=== PATIENT | female | born 1930 | race Caucasian/White ===

== ENCOUNTER → 2017-01-19 | Outpatient (CLI) | payer MEDICARE ==
[~2017-01-19] MED LIST: ASPI-621 PO; HYDR25TA6 PO; IBUP-1222 PO; METO50TA4 PO; PRAV10TA2 PO
[2017-01-19 14:08] LABS: BLOOD UREA NITROGEN 25 mg/dL (7-18)
[2017-01-19 14:11] LABS: ASPARTATE AMINO TRANSFERASE 13 U/L (15-37)
== END | disposition home or self-care (01) ==
LOC: LAB 13:42
PROVIDERS: ATTEND Nurse Practitioner Family
DX: E78.00 Pure hypercholesterolemia, unspecified (principal); E83.41 Hypermagnesemia
CPT/HCPCS: 36415; 80053; 83735

== ENCOUNTER → 2017-03-19 | Outpatient (CLI) | payer MEDICARE | END | disposition home or self-care (01) | LOC: MERGE 03-06 13:00 → CFH 13:14 | PROVIDERS: ATTEND Specialist | DX: K44.9 Diaphragmatic hernia without obstruction or gangrene (principal); K22.4 Dyskinesia of esophagus | CPT/HCPCS: 74220 ==

== ENCOUNTER → 2017-03-25 | Outpatient (CLI) | payer MEDICARE | END | disposition home or self-care (01) | LOC: CFH 13:08 | PROVIDERS: ATTEND Specialist | DX: K76.9 Liver disease, unspecified (principal) | CPT/HCPCS: 82565 ==

== ENCOUNTER → 2017-03-30 | Outpatient (CLI) | payer MEDICARE ==
[~2017-03-30] MED LIST changes: +GADOBUTROL 10 MMOL/10 ML VIAL ONE
== END | disposition home or self-care (01) ==
LOC: RAD 12:41
PROVIDERS: ATTEND Specialist
DX: K76.89 Other specified diseases of liver (principal); K80.20 Calculus of gallbladder without cholecystitis without obstruction
CPT/HCPCS: 74183; A9585

== ENCOUNTER 2019-05-09 07:32 | Outpatient (CLI) | payer MEDICARE | END 2019-05-09 23:59 | disposition home or self-care (01) | LOC: CFH 07:32 | PROVIDERS: ATTEND Internal Medicine Cardiovascular Disease | DX: R07.89 Other chest pain (principal); I25.2 Old myocardial infarction | CPT/HCPCS: 78452; 93017; A9502; J2785 ==

== ENCOUNTER 2019-10-11 11:41 | Emergency (ER) | payer MEDICARE ==
[~2019-10-11] VITALS: Ht 167.6 cm; Wt 72.1 kg
[~2019-10-11 11:41] MED LIST changes: -ASPI-621 PO; +ASPI81TA45 PO; -GADOBUTROL 10 MMOL/10 ML VIAL ONE
[2019-10-11 11:54] VITALS: BP 169/61
--- NOTE | 2019-10-11 12:15 | NUR ---
echo technician: report to primary RN MD René Chan to evaluate pt
--- NOTE | 2019-10-11 12:31 | NUR ---
charge manager: Pt refusing wheelchair to discharge desk.
== END 2019-10-11 12:35 | disposition home or self-care (01) ==
LOC: ED 12:05
DX: S60.212A Contusion of left wrist, initial encounter (principal); R60.0 Localized edema; I10 Essential (primary) hypertension; E78.00 Pure hypercholesterolemia, unspecified; X58.XXXA Exposure to other specified factors, initial encounter; Y93.89 Activity, other specified; Y92.89 Other specified places as the place of occurrence of the external cause; Y99.8 Other external cause status
CPT/HCPCS: 99281